=== PATIENT | female | born 1970 | race Caucasian/White ===

== ENCOUNTER 2018-01-26 16:17 | Outpatient (CLI) | payer OTHER | END 2018-01-26 16:18 | disposition home or self-care (01) | LOC: BICMAMMO 16:17 | PROVIDERS: ATTEND Obstetrics & Gynecology | DX: Z12.31 Encounter for screening mammogram for malignant neoplasm of breast (principal); Z80.3 Family history of malignant neoplasm of breast | CPT/HCPCS: 77063; 77067 ==

== ENCOUNTER 2018-11-05 08:59 | Outpatient (CLI) | payer OTHER ==
--- NOTE | 2018-11-05 10:07 | MRI ---
MRI of lumbar spine: 11/05/2018 COMPARISON: None HISTORY: Low back pain with bilateral leg and groin pain, lower extremity radiculopathy TECHNIQUE: Multiplanar multisequence MR imaging of the lumbar spine obtained without contrast FINDINGS: No focal area of osseous marrow edema noted on the sagittal STIR imaging. There is fluid wi thin bilateral facet joints at L4-5. Vertebral body height and alignment appears normal within the lumbar spine. On the basis of 5 lumbar type vertebral bodies, the conus medullaris terminates at the L1 level. T12-L1: Intervertebral disc height and signal intensity is within normal limits with no significant c entral canal or neural foraminal stenosis. L1-2: Intervertebral disc height and signal intensity within normal limits with no significant centra l canal or neural foraminal stenosis. L2-3: Intervertebral disc height and signal intensity within normal limits with no significant centra l canal or neural foraminal stenosis. L3-4: Intervertebral disc height and signal intensity within normal limits with no significant centra l canal or neural foraminal stenosis. L4-5: Prominent bilateral facet hypertrophy. There is disc desiccation. No significant central canal stenosis. Mild bilateral neural foraminal stenosis. L5-S1: Disc space narrowing, disc desiccation, and small central annular tear with associated small c entral disc protrusion. No significant central canal or neural foraminal stenosis. Imaged retroperitoneal structures demonstrate a partially visualized T2 hyperintense lesion within th e left kidney, likely representing a cyst. IMPRESSION: Lower lumbar spine degenerative change, which includes prominent L4-5 facet hypertrophy w ith fluid within bilateral facet joints.
--- NOTE | 2018-11-05 10:34 | RAD ---
SACRUM AND COCCYX: Date: 11/05/18 HISTORY: History of prior broken tailbone, lumbosacral pain. FINDINGS/IMPRESSION: Mild degenerative changes of the SI joints. No fracture, dislocation, or other significant acute osse ous process. POS: C
--- NOTE | 2018-11-05 10:51 | RAD ---
LUMBAR SPINE 3 VIEWS: HISTORY: Low back pain with bilateral leg and groin pain for several years, lumbosacral pain. FINDINGS: Exam includes flexion and extension lateral views. Mild discogenic and degenerative changes and facet arthrosis. No significant malalignment. No abnor mal translation. IMPRESSION: Mild spondylosis. No abnormal translation. POS: C
== END 2018-11-05 09:00 | disposition home or self-care (01) ==
LOC: TBSIIMAG 08:59
PROVIDERS: ATTEND Nurse Practitioner Family
DX: M54.5 Low back pain (principal); M47.816 Spondylosis without myelopathy or radiculopathy, lumbar region; M53.3 Sacrococcygeal disorders, not elsewhere classified
CPT/HCPCS: 72100; 72148; 72220

== ENCOUNTER 2019-02-08 15:56 | Outpatient (CLI) | payer OTHER ==
--- NOTE | 2019-02-08 16:58 | MMO ---
Bilateral MAMMO Bilat Screen [facility]. CLINICAL HISTORY: Patient is 48 years old and is seen for screening. The patient has the following family history of breast cancer: maternal aunt, at age 40. The patient has no personal history of cancer. VIEWS: The views performed were: bilateral craniocaudal with tomosynthesis and bilateral mediolateral oblique with tomosynthesis. FILMS COMPARED: The present examination has been compared to prior imaging studies performed at [facility] on 01/24/2015, 01/18/2016, 01/22/2017 and 01/26/2018. MAMMOGRAM FINDINGS: The breasts are heterogeneously dense, which could obscure a lesion on mammography. There are no suspicious masses, suspicious calcifications, or new areas of architectural distortion. IMPRESSION: THERE IS NO MAMMOGRAPHIC EVIDENCE OF MALIGNANCY. A ROUTINE FOLLOW-UP MAMMOGRAM IN 1 YEAR IS RECOMMENDED. THE RESULTS OF THIS EXAM WERE SENT TO THE PATIENT. ACR BI-RADS Category 1 - Negative MAMMOGRAPHY NOTE: 1. A negative mammogram report should not delay a biopsy if a dominant of clinically suspicious mass is present. 2. Approximately 10% to 15% of breast cancers are not detected by mammography. 3. Adenosis and dense breasts may obscure an underlying neoplasm. Reported by: MARCIA PURDY MD Electonically Signed: [id number]
== END 2019-02-08 15:57 | disposition home or self-care (01) ==
LOC: BICMAMMO 15:56
PROVIDERS: ATTEND Obstetrics & Gynecology
DX: Z12.31 Encounter for screening mammogram for malignant neoplasm of breast (principal); Z80.3 Family history of malignant neoplasm of breast
CPT/HCPCS: 77063; 77067

== ENCOUNTER 2019-06-24 07:35 | Outpatient (CLI) | payer OTHER ==
--- NOTE | 2019-06-24 10:04 | MRI ---
MRI ABDOMEN WITH AND WITHOUT IV CONTRAST AND MRCP: HISTORY: Epigastric pain. COMPARISON: None. CORRELATION: None. FINDINGS: The patient is post cholecystectomy. The extrahepatic biliary duct/common duct is dilated and tapers down to 7 mm in the pancreatic head. This is likely due to reservoir effect from the cholecystectom y. No choledocholithiasis is seen. The liver, spleen, pancreas, adrenal glands, and the right kidne y are normal. There is a 4.5 cm simple cyst arising from the left kidney. No free fluid or lymphade nopathy seen. The aorta is of normal caliber. The bone marrow signal is normal. IMPRESSION: 1. Status post cholecystectomy without evidence of choledocholithiasis. 2. Left renal cyst. POS: LOBO
== END 2019-06-24 07:36 | disposition home or self-care (01) ==
LOC: BICMRI 07:35
PROVIDERS: ATTEND Internal Medicine Gastroenterology
DX: R10.13 Epigastric pain (principal); N28.1 Cyst of kidney, acquired; Z90.49 Acquired absence of other specified parts of digestive tract
CPT/HCPCS: 74183; 82565

== ENCOUNTER 2019-08-29 10:55 | Outpatient (CLI) | payer OTHER | END 2019-08-29 10:56 | disposition home or self-care (01) | LOC: DTY/OP 10:55 | PROVIDERS: ATTEND Nurse Practitioner Family | DX: E11.9 Type 2 diabetes mellitus without complications (principal); E79.0 Hyperuricemia without signs of inflammatory arthritis and tophaceous disease | CPT/HCPCS: 97802 ==

== ENCOUNTER 2020-01-18 11:19 | Outpatient (CLI) | payer OTHER ==
--- NOTE | 2020-01-18 12:49 | MMO ---
Bilateral MAMMO Bilat Screen [facility]. CLINICAL HISTORY: Patient is 49 years old and is seen for screening. The patient has the following family history of breast cancer: maternal aunt, at age 40. The patient has no personal history of cancer. VIEWS: The views performed were: bilateral craniocaudal with tomosynthesis and bilateral mediolateral oblique with tomosynthesis. FILMS COMPARED: The present examination has been compared to prior imaging studies performed at [facility] on 01/18/2016, 01/22/2017, 01/26/2018 and 02/08/2019. This study has been interpreted with the assistance of computer-aided detection. MAMMOGRAM FINDINGS: The breasts are heterogeneously dense, which could obscure a lesion on mammography. There are no suspicious masses, suspicious calcifications, or new areas of architectural distortion. IMPRESSION: THERE IS NO MAMMOGRAPHIC EVIDENCE OF MALIGNANCY. A ROUTINE FOLLOW-UP MAMMOGRAM IN 1 YEAR IS RECOMMENDED. THE RESULTS OF THIS EXAM WERE SENT TO THE PATIENT. ACR BI-RADS Category 1 - Negative MAMMOGRAPHY NOTE: 1. A negative mammogram report should not delay a biopsy if a dominant of clinically suspicious mass is present. 2. Approximately 10% to 15% of breast cancers are not detected by mammography. 3. Adenosis and dense breasts may obscure an underlying neoplasm. Reported by: MARCIA PURDY MD Electonically Signed: [id number]
== END 2020-01-18 11:20 | disposition home or self-care (01) ==
LOC: BICMAMMO 11:19
PROVIDERS: ATTEND Obstetrics & Gynecology
DX: Z12.31 Encounter for screening mammogram for malignant neoplasm of breast (principal); Z80.3 Family history of malignant neoplasm of breast
CPT/HCPCS: 77063; 77067

== ENCOUNTER 2022-02-07 14:47 | Outpatient (CLI) | payer BC | END 2022-02-07 14:48 | disposition home or self-care (01) | LOC: BICMAMMO 14:47 | PROVIDERS: ATTEND Obstetrics & Gynecology | DX: Z12.31 Encounter for screening mammogram for malignant neoplasm of breast (principal); Z80.3 Family history of malignant neoplasm of breast | CPT/HCPCS: 77063; 77067 ==

== ENCOUNTER 2023-02-11 14:45 | Outpatient (CLI) | payer BC | END 2023-02-11 14:46 | disposition home or self-care (01) | LOC: BICMAMMO 14:45 | PROVIDERS: ATTEND Family Medicine | DX: Z12.31 Encounter for screening mammogram for malignant neoplasm of breast (principal); Z80.3 Family history of malignant neoplasm of breast | CPT/HCPCS: 77063; 77067 ==

== ENCOUNTER 2024-03-15 15:33 | Outpatient (CLI) | payer BC | END 2024-03-15 15:34 | disposition home or self-care (01) | LOC: BICULT 15:33 | PROVIDERS: ATTEND Family Medicine | DX: R22.1 Localized swelling, mass and lump, neck (principal); E04.1 Nontoxic single thyroid nodule | CPT/HCPCS: 76536 ==

== ENCOUNTER 2024-07-07 10:13 | Outpatient (CLI) | payer BC | END 2024-07-07 10:14 | disposition home or self-care (01) | LOC: ULT 10:13 | PROVIDERS: ATTEND Otolaryngology Plastic Surgery within the Head & Neck | DX: E04.2 Nontoxic multinodular goiter (principal) | CPT/HCPCS: 76536 ==

== ENCOUNTER 2025-02-17 15:55 | Outpatient (CLI) | payer BC | END 2025-02-17 15:56 | disposition home or self-care (01) | LOC: BICMAMMO 15:55 | PROVIDERS: ATTEND Family Medicine | DX: Z12.31 Encounter for screening mammogram for malignant neoplasm of breast (principal); Z80.3 Family history of malignant neoplasm of breast | CPT/HCPCS: 77063; 77067 ==

== ENCOUNTER 2025-05-01 13:18 | Outpatient (CLI) | payer BC | END 2025-05-01 13:19 | disposition home or self-care (01) | LOC: BICMRI 13:18 | PROVIDERS: ATTEND Specialist | DX: M51.17 Intervertebral disc disorders with radiculopathy, lumbosacral region (principal); M48.061 Spinal stenosis, lumbar region without neurogenic claudication | CPT/HCPCS: 72148 ==